=== PATIENT | male | born 1960 | race Two or more races ===

== ENCOUNTER 2019-05-13 14:22 | Emergency (ER) | payer BC ==
--- NOTE | 2019-05-13 14:40 | ED ---
Throat Pain/Nasal Congestion - HPI Summary HPI Summary: The patient is a 59 y/o M presenting to [facility] accompanied by with a chief complaint of sudden onset epistaxis from the right nare about an hour and a half prior to arrival. He reports that she had been at work when this episode occurred. The bleeding started in the right nostril but is also now dripping into his throat. He denies any dizziness. He is not in any pain now. He hasnt had nosebleeds in about 15 years, although he did have another episode last week which he was seen at [facility], where he had been cauterized for an arterial bleed. No trauma to the nose. He is not currently on anticoagulants. PMHx: gastric bypass. Nonsmoker, no EtOH, no substance use. Medications reviewed. Allergies noted. - History of Current Complaint Chief Complaint: EDEpistaxis Time Seen by Provider: 05/13/19 14:34 Hx Obtained From: Patient Onset/Duration: Lasting Minutes - hour and a half, Still Present Severity: Severe Associated Signs And Symptoms: Positive: Nasal Discharge - blood Cough: None - Allergies/Home Medications Allergies/Adverse Reactions: Allergies Allergy/AdvReac Type Severity Reaction Status Date / Time ibuprofen Allergy Bleeding Verified 05/13/19 14:27 PMH/Surg Hx/FS Hx/Imm Hx Endocrine/Hematology History: Denies: Hx Diabetes Cardiovascular History: Denies: Hx Hypertension Sensory History: Reports: Hx Contacts or Glasses Opthamlomology History: Reports: Hx Contacts or Glasses - Surgical History Surgical History: Yes Surgery Procedure, Year, and Place: gastric bypass surgery 2002, ACL repair Infectious Disease History: No Infectious Disease History: Denies: Traveled Outside the [place] in Last 30 Days - Family History Known Family History: Negative: Diabetes Review of Systems Positive: Epistaxis Neurological: Other - Negative: dizziness All Other Systems Reviewed And Are Negative: Yes Physical Exam - Summary Physical Exam Summary: Constitutional: Well-developed, Well-nourished, Alert. (-) Distressed Skin: Warm, Dry HENT: Normocephalic; Atraumatic; Brisk red blood from the right nare, blood in posterior oropharnynx Eyes: Conjunctiva normal Neck: Musculoskeletal ROM normal neck. (-) JVD, (-) Stridor, (-) Nuchal rigidity Cardio: Rhythm regular, tachycardia, Heart sounds normal; Intact distal pulses; Radial pulses are 2+ and symmetric. (-) Murmur Pulmonary/Chest wall: Effort normal. (-) Respiratory distress, (-) Wheezes, (-) Rales Abd: ND Musculoskeletal: (-) Edema Neuro: Alert, Oriented x3 Psych: Mood and affect Normal Triage Information Reviewed: Yes Vital Signs On Initial Exam: Initial Vitals Temp Pulse Resp BP Pulse Ox 98.6 F 106 22 190/104 97 05/13/19 14:22 05/13/19 14:22 05/13/19 14:22 05/13/19 14:22 05/13/19 14:22 Vital Signs Reviewed: Yes Procedures - Procedure Summary Procedure Summary: Epistaxis Procedure Note: Rhinorocket placed in the right nare to good affect. Balloon inflated using 8ccs of air. Bleeding controlled. - Sedation Patient Received Moderate/Deep Sedation with Procedure: No Diagnostics - Vital Signs Vital Signs Temp Pulse Resp BP Pulse Ox 05/13/19 14:22 98.6 F 106 22 190/104 97 - Laboratory Lab Statement: Any lab studies that have been ordered have been reviewed, and results considered in the medical decision making process. Re-Evaluation - Re-Evaluation First Eval Re-Evaluation Time: 15:20 Change: Improved Comment: There is still some blood dripping from the right nare where the rhinorocket is placed. There is no blood in the left nare, and there is no post- nasal drip. Second Eval Re-Evaluation Time: 15:50 Change: Improved Comment: We discussed plan for discharge. No further bleeding. Sent home w amlodipine for BP EENT Course/Dx - Course Course Of Treatment: 59 y/o male pw epistaxis. - PE with prescribed blood from the right ear. Rhino Rocket placed. Patient markedly hypertensive 200 systolic , reports possible history the past been on medications. Given 20 of hydralazine here to aid with epistaxis. -Based on my eval today, no evidence of end organ damage from hypertension. - no chest pain/sob, no YOUNG, neuro exam non-focal. Recommendations for BP management: -The pt likely suffers from essential hypertension. -In the absence of a hypertensive emergency, which the pt does not have, there is no indication to aggressively treat her elevated blood pressure, even when it approaches the systolic ~180 range. -The patient needs manager long term care management of their blood pressure. Given amlodipine Rx. - acutely, the pt may still have an elevated pressure, but over time the medication will take effect. - Diagnoses Provider Diagnoses: Epistaxis, Hypertension Discharge ED - Sign-Out/Discharge Documenting (check all that apply): Patient Departure - Patient will be discharged home. - Discharge Plan Condition: Stable Disposition: HOME Prescriptions: amLODIPine TAB* [Norvasc 5 mg TAB*] 5 mg PO DAILY 30 Days #30 tab Amoxicillin/Clavulanate TAB* [Augmentin TAB 875*] 875 mg PO BID 3 Days #6 tab Patient Education Materials: Nosebleed (ED) Referrals: Natasha KEENAN,[facility] [Primary Care Provider] - 3 Days Additional Instructions: You were seen in the emergency department for a nosebleed. We placed packing in your nostril. Your blood pressure was high, please take amlodipine 5mg daily and get it rechecked w your doctor. Please keep this in place, and follow-up with ENT in the next 2-3 days. Please take antibiotic, Augmentin twice a day. Please return for continued, fevers, facial pain or headaches or if you're concerned. It was a pleasure taking care of you today. - Billing Disposition and Condition Condition: STABLE Disposition: Home - Attestation Statements Document Initiated by Jarvis: Yes Documenting Scribe: Tash Lim Provider For Whom Jarvis is Documenting (Include Credential): Dr. Renato Hernandez MD Scribe Attestation: Tash Mott scribed for Dr. Renato Hernandez MD on 05/13/19 at 1617. Scribe Documentation Reviewed: Yes Provider Attestation: The documentation as recorded by the Tash robles accurately reflects the service I personally performed and the decisions made by me, Dr. Renato Hernandez MD Status of Jarvis Document: Viewed
[2019-05-13] MEDS ORDERED: Amoxicillin/Clavulanate TAB* 875 MG PO ONE (14:54)
--- OUTSIDE RECORDS SUMMARY | 2019-05-13 15:07 | XMS REPORT | Summary of Care ---
:1960 Author Organization [facility] Address [address] [address] Care Team Providers Name Role Phone Janelle Kaur Primary Care Provider Reason for Visit Reason Comments Epistaxis Encounter Details Date Type Department Care Team Description 05/07/2019 - Emergency [facility] Michael Beyer DO Emergency 05/08/2019 Emergency Department 1 Aleks Shepard [address] [email or web address] [address] [phone] Allergies Active Allergy Reactions Severity Noted Date Comments Nsaids Other 10/28/2018 Contraindicated in Gastric Bypass patients due to risk of marginal ulcer formation. documented as of this encounter (statuses as of 05/09/2019) Medications Medication Sig Dispensed Refills Start Date End Date Status Sildenafil Citrate Take by mouth 0 Active (VIAGRA) 25 MG Oral NEEDED. Tab Multiple Vitamin Take 3 Tabs by 0 Active (MULTI VITAMIN DAILY mouth TWICE DAILY. PO)Indications: Indications: Bariatric Chews Bariatric Chews Biotin 2500 MCG Oral Take 1 Cap by mouth 0 Active Cap DAILY. documented as of this encounter (statuses as of 05/09/2019) Active Problems Problem Noted Date Morbid obesity due to excess calories 03/13/2018 Overview: Added automatically from request for surgery [id number] documented as of this encounter (statuses as of 05/09/2019) Immunizations Name Administration Dates Next Due ZOSTER (SHINGRIX) VACCINE 03/17/2019 documented as of this encounter Social History Tobacco Use Types Packs/Day Years Used Date Never Smoker Smokeless Tobacco: Never Used Alcohol Use Drinks/Week oz/Week Comments No Sex Assigned at Date Recorded Not on file Job Start Date Occupation Industry Not on file Not on file Not on file Travel History Travel Start Travel End No recent travel history available. documented as of this encounter Last Filed Vital Signs Vital Sign Reading Time Taken Comments Blood Pressure 160/80 05/08/2019 12:44 manual, pt states he AM EDT was stressed Pulse 93 05/08/2019 12:44 AM EDT Temperature 36.1 05/08/2019 12:44 C (97 AM EDT F) Respiratory Rate 18 05/08/2019 12:44 AM EDT Oxygen Saturation 98% 05/08/2019 12:44 AM EDT Inhaled Oxygen - - Concentration Weight - - Height - - Body Mass Index - - documented in this encounter Discharge Instructions InstructionsNoMichael moreno, - 05/08/2019Please make sure to follow-up with Dr. Esparza, ENT surgeon within 1 week. AttachmentsThe following attachments cannot be sent through Care Everywhere.NOSEBLEED (REFERENCES) (BENGALI)documented in this encounter Plan of Treatment Date Type Specialty Care Team Description 05/11/2019 Office Visit Bariatrics Lexis Leon, SHALINI [address] [facility] [place] [address] 05/16/2019 Nurse/Clinical Support Internal Medicine Health Maintenance Due Date Last Done Comments HEPATITIS C SCREENING 2000 INFLUENZA VACCINE (#1) 2019 HEMOGLOBIN A1C 04/22/2019 10/21/2018, 07/25/2018, 06/07/2018, Additional history exists ZOSTER IMMUNIZATION SERIES 05/12/2019 03/17/2019 (2 of 2) LIPID DISORDER SCREENING 10/22/2019 10/21/2018, 07/25/2018, 06/07/2018, Additional history exists DEPRESSION SCREENING 03/17/2020 03/17/2019 COLONOSCOPY SCREENING 03/17/2024 03/17/2014 PNEUMOCOCCAL 0-64 YRS (1 of 02/09/2026 Postponed from 1 - PPSV23) 02/10/1966 (Other) HPV IMMUNIZATION SERIES Aged Out No longer eligible based on patient's age to complete this topic MENINGOCOCCAL VACCINE IMM Aged Out No longer eligible based on patient's age to complete this topic documented as of this encounter Goals Goal Patient Goal Associated Recent Patient-Stated? Author Type Problems Progress Blood Pressure Blood Pressure 160/80 No Natasha, < 140/90 (05/08/2019 MD Janelle 12:44 AM EDT) Note: This is an individualized treatment (blood pressure) goal for Aric White: Displayed above (on the left) is your goal for blood pressure control. Your most recent blood pressure is also shown above, on the right. You should try to achieve blood pressures that are lower than your goal listed above (on the left). Glycohemoglobin A1c < 7.0 Diabetes 5.5 (10/21/2018 7:34 AM EDT) No Janelle Kaur MD Note: This is an individualized treatment (diabetes control, HgbA1C) goal for Aric White: Displayed above is your progress towards your HgbA1C goal. Your goal is shown above (on the left); your most recent HgbA1C is shown on the right. Note that lower numbers are better. Keep immunizations current Lifestyle Janelle Whittington MD Note: This is an individualized lifestyle goal for Aric White: Please be sure to keep up-to-date on recommended immunizations. For example, this would include a yearly influenza vaccine. Immunization status can be seen by looking at the Health Maintenance sections of your [employer], Plan of Care, and any After Visit Summaries. Take all prescribed medications as directed Self-management Janelle Whittington MD Note: This is an individualized self-management goal for Aric White: Please take all prescribed medications as directed. 1. Do not skip doses. If you cannot afford your medications, talk with your doctor. 2. Use a pill reminder system such as a pill box if needed. Your pharmacist can help you with this. 3. Contact your Pharmacy 5 days before your medication runs out. If you cannot take your medications for any reasons, talk with your doctor. 4. Please bring all of your medication bottles and inhalers (or a list of all your medications/inhalers) with you to every visit. Potential barriers to meeting all of your care plan goals will continue to be addressed on an ongoing basis. documented as of this encounter Procedures Procedure Name Priority Date/Time Associated Diagnosis Comments CONTROL NOSEBLEED Routine 05/08/2019 12:47 AM Results for this (EPISTAXIS)(FOR ED EDT procedure are in USE) the results section. documented in this encounter Results Epistaxis (05/08/2019 12:47 AM EDT) Narrative Performed At Michael Beyer DO [facility] POCT 05/08/2019 2:20 AM Epistaxis Date/Time: 05/08/2019 2:17 AM Performed by: Michael Beyer DO Authorized by: Michael Beyer DO Consent: Consent obtained: Verbal Consent given by: Patient Risks discussed: Bleeding, infection, nasal injury and pain Alternatives discussed: No treatment Anesthesia (see MAR for exact dosages): Anesthesia method: Topical application Topical anesthetic: Lidocaine gel Procedure details: Treatment site: R anterior Treatment method: Silver nitrate Treatment episode: initial Post-procedure details: Assessment: Bleeding stopped Patient tolerance of procedure: Tolerated well, no immediate complications Performing Organization Address [facility] Number [facility] [address] [facility] [place] [address] documented in this encounter Visit Diagnoses Diagnosis Epistaxis - Primary documented in this encounter Administered Medications Medication Order MAR Action Action Date Dose Rate Site lidocaine HCl (XYLOCAINE) injection Given 05/07/2019 10:39 PM EDT 5 mL Nose 1 % 5 mL, Subcutaneous, NOW, 1 dose, 05/07/19 at 2240 nitroglycerin (NITROSTAT) sublingual tablet Given 05/07/2019 10:43 PM EDT 0.4 mg (1/150) 0.4 mg 0.4 mg, Sublingual, NOW, 1 dose, 05/07/19 at 2245 NITROGLYCERIN 0.4 MG SL SUBL 1 dose, Starting 05/07/19 at 2233, Until 05/07/19 at 2243, Renata Arreola: cabinet override, PHENYLephrine (MAME-SYNEPHRINE) spray 0.5 % Given 05/07/2019 10:40 PM EDT 3 Sprays 3 [employer], Nasal, NOW, 1 dose, 05/07/19 at 2240 SILVER NITRATE-POT NITRATE 75-25 % EX MISC 1 dose, Starting 05/07/19 at 2341, Until 05/07/19 at 2345, ALYSE QUEZADA: cabinet override, Silver Nitrate-Pot Nitrate topical 1 Appl Given 05/07/2019 11:45 PM EDT 1 Appl 1 Appl, Apply externally, NOW, 1 dose, 05/07/19 at 2345 tranexamic acid (CYKLOKAPRON) topical Given 05/07/2019 10:40 PM EDT 1,000 mg Nose soln 1,000 mg, Topical, X1, 1 dose, First dose on 05/07/19 at 2340 documented in this encounter Insurance Payer Benefit Plan / Subscriber ID Effective Dates Phone Address Type Group GILBERTO ACEVEDO xxxxxxxxxxxx 2011-Present Gilberto BOLANOS PPO (Work) documented as of this encounter
--- OUTSIDE RECORDS SUMMARY | 2019-05-13 15:07 | XMS REPORT | Summary of Care ---
:1960 Author Organization [facility] Address [address] [place] [address] Care Team Providers Name Role Phone Malik Kirkland MD Primary Care Provider Reason for Referral Diagnostic Testing (Routine) Status Reason Specialty Diagnoses / Referred By Referred To Procedures Contact Contact Pending Review Diagnoses Inferior NV (HCC) Janelle Kaur MD Procedures EXERCISE STRESS ECHO W/TREADMILL [address] [place] [place] [address] Reason for Visit Reason Comments Establish Care Blood Pressure 166/94 left arm, sitting Encounter Details Date Type Department Care Team Description 03/17/2019 Office Visit [facility] Janelle Kaur MD Establishing care with new doctor, encounter for (Primary Dx); Medicine 31 [facility] Elevated blood pressure reading without diagnosis of hypertension; 31 [facility] A Inferior NV (HCC); [place], [place] [id number] [place] [address] Need for hepatitis C screening test; [phone] [facility] Need for shingles vaccine; [phone] Depression screen Allergies Active Allergy Reactions Severity Noted Date Comments Nsaids Other 10/28/2018 Contraindicated in Gastric Bypass patients due to risk of marginal ulcer formation. documented as of this encounter (statuses as of 03/17/2019) Medications Medication Sig Dispensed Refills Start Date End Date Status Sildenafil Citrate Take by mouth 0 Active (VIAGRA) 25 MG NEEDED. Oral Tab Multiple Vitamin Take 3 Tabs by 0 Active (MULTI VITAMIN mouth TWICE DAILY DAILY. PO)Indications: Indications: Bariatric Chews Bariatric Chews Biotin 2500 MCG Take 1 Cap by 0 Active Oral Cap mouth DAILY. docusate sodium Take 1 Cap by 30 Cap 1 04/21/2018 03/17/2019 Discontinued (COLACE) 100 MG mouth TWO TIMES Oral Cap DAILY NEEDED (constipation). ondansetron Take 1 Tab by 60 Tab 3 04/21/2018 03/17/2019 Discontinued (ZOFRAN ODT) 4 MG mouth Oral TABLET DIRECTED. DISPERSIBLE Please take 4mg Zofran tablet every 6 hours as needed for nausea or vomiting. pantoprazole Take 1 Tab by 30 Tab 0 10/28/2018 03/17/2019 Discontinued (PROTONIX) 20 MG mouth DAILY. Oral Tab EC documented as of this encounter (statuses as of 03/17/2019) Active Problems Problem Noted Date Morbid obesity due to excess calories 03/13/2018 Overview: Added automatically from request for surgery [id number] documented as of this encounter (statuses as of 03/17/2019) Immunizations Name Administration Dates Next Due ZOSTER [...] Sign Reading Time Taken Comments Blood Pressure - - Pulse 82 03/17/2019 9:50 AM EDT Temperature 36.6 03/17/2019 9:50 AM EDT C (97.9 F) Respiratory Rate - - Oxygen Saturation 99% 03/17/2019 9:50 AM EDT Inhaled Oxygen Concentration - - Weight 78 kg (172 lb) 03/17/2019 9:50 AM EDT Height 170.2 cm (5' 7") 03/17/2019 9:50 AM EDT Body Mass Index 26.94 03/17/2019 9:50 AM EDT documented in this encounter Patient Instructions Patient InstructionsJanelle Kaur MD - 03/17/2019 9:30 AM EDTPlease start taking vitamin D3 2000 units one daily. Please continue with healthy life style changes and weight loss. Excellent job . please check blood pressure at different times during the day at home and forward the records to theoffice every 5 days. Please bring blood pressure cuff with you at your next visit. documented in this encounter Progress Notes Janelle Kaur MD - 03/17/2019 9:30 AM EDT PATIENT: Aric White : 1960 DATE OF SERVICE: 03/17/2019 Chief Complaint Patient presents with [facility] Care Blood Pressure 166/94 left arm, sitting SUBJECTIVE Aric White is a 59-y.o. Came in for establishment. Blood pressure at home in the range of 140-145/80-85 He denies urinary hesitancy, nocturia, frequency or incomplete voiding. Currently he denies cough, chest pain, dyspnea, abdominal or flank pain, nausea or vomiting, changein bowel habits, dysuria, frequency or hematuria. no fever or chills . Functional Ability, Level of Safety Are you deaf or do you have serious difficulty hearing?: No Are you blind or do you have serious difficulty seeing, even when wearing glasses?: No Do you have serious difficulty concentrating, remembering, or making decisions? : No Do you have serious difficulty walking or climbing stairs? (5 years old or older ): No Do you have difficulty dressing or bathing? (5 years old or older): No Do you have difficulty doing errands alone such as visiting a doctors office or shopping?: No Depression Screening Over the last 2 weeks, have you been feeling down, depressed, anxious, or hopeless?: Not at all Over the past 2 weeks, have you felt little interest or pleasure in doing things ?: Not at all EDU-7 Screening Over the last 2 weeks, how often have you felt nervous, anxious or on edge?: Not at all sure Over the last 2 weeks, how often have you not been able to stop or control worrying?: Not at all sure Over the last 2 weeks, how often have you worried too much about different things?: Not at all sure Over the last 2 weeks, how often have you had trouble relaxing?: Not at all sure Over the last 2 weeks, how often have you been so restless you couldn't sit still?: Not at all sure Over the last 2 weeks, how often have you become easily annoyed or irritable: Not at all sure Over the last 2 weeks, how often have you felt afraid as if something awful might happen?: Not at all sure EDU-7 Total Score: 0 How difficult have these problems made it for you to do your work, take care of things at home, or get along with other people?: Not difficult Past Medical History: Diagnosis Date Arthritis Back pain High cholesterol Hypertension Sleep apnea uses CPAP Outpatient Encounter Medications as of 03/17/2019 Medication Sig Dispense Refill Biotin 2500 MCG Oral Cap Take 1 Cap by mouth DAILY. [DISCONTINUED] docusate sodium (COLACE) 100 MG Oral Cap Take 1 Cap by mouth TWO TIMES DAILY NEEDED (constipation). 30 Cap 1 Multiple Vitamin (MULTI VITAMIN DAILY PO) Take 3 Tabs by mouth TWICE DAILY. Indications: Bariatric Chews [DISCONTINUED] ondansetron (ZOFRAN ODT) 4 MG Oral TABLET DISPERSIBLE Take 1 Tab by mouth DIRECTED. Please take 4mg Zofran tablet every 6 hours as needed for nausea or vomiting. 60 Tab 3 [DISCONTINUED] pantoprazole (PROTONIX) 20 MG Oral Tab EC Take 1 Tab by mouth DAILY. 30 Tab 0 Sildenafil Citrate (VIAGRA) 25 MG Oral Tab Take by mouth NEEDED. No facility-administered encounter medications on file as of 03/17/2019. Past Surgical History: Procedure Laterality Date CT UPPER EXTREMITY SHOULDER LEFT Left 2003 EGD N/A 12/17/2017 Procedure: ENDOSCOPY UPPER GI; Surgeon: Jossie Majano MD; Location: [facility] MAIN OR NC ANESTH,KNEE AREA SURGERY Right NC LAP GASTRIC BYPASS/JAYA-EN-Y 05/04/2018 ROTATOR CUFF REPAIR Left 2003 Allergies Allergen Reactions Nsaids Other Contraindicated in Gastric Bypass patients due to risk of marginal ulcer formation. Social History Tobacco Use Smoking status: Never Smoker Smokeless tobacco: Never Used Substance Use Topics Alcohol use: No Drug use: No Family History Problem Relation Age of Onset Diabetes Father Hypertension Father Cancer Father prostate No Known Problems Mother Obesity Sister No Known Problems Daughter No Known Problems Son Obesity Sister Obesity Sister No Known Problems Son ROS all other review of systems are negative per HPI OBJECTIVE Pulse 82 Temp 97.9 F (36.6 C) (Tympanic) Ht 5' 7" (1.702 m) Wt 172 lb (78 kg) SpO2 99% BMI 26.94 kg/m2 BP= 166/94 GENERAL: alert,oriented,appears not toxic, not dehydrated, not diaphoretic and not distressed. OROPHARYNX: Normal. EYE: is normal -sclera white,conjunctiva anicteric NECK: Non tender.supple without lymphadenopathy LUNG: clear to auscultation bilaterally. HEART: regular rate and rhythm, S1, S2 normal, no murmur, click, rub or gallop ABDOMEN: soft, non-tender. No masses, no organomegaly. No CVA tenderness EXTREMITIES: No clubbing,cyanosis or edema. ICD-9-CM ICD-10-CM 1. Establishing care with new doctor, encounter for V65.8 Z76.89 2. Elevated blood pressure reading without diagnosis of hypertension; EKG: normal EKG, normal sinus rhythm, unchanged from previous tracings, Q waves in leads 3 and aVF which is new , rate= 53. I will manage as follow 796.2 R03.0 AMBULATORY 12 LEAD EKG (GLOBAL) AMBULATORY BLOOD PRESSURE MONITORING, 24 HOURS, GLOBAL 3. Inferior NV (HCC); : I had long discussion explaining disease management and I will manage his follow I will order 410.40 I21.19 EXERCISE STRESS ECHO W/ TREADMILL 4. Need for hepatitis C screening test; i will order V73.89 Z11.59 HEPATITIS C ANTIBODY 5. Need for shingles vaccine V04.89 Z23 NC SHINGRIX (ZOSTER) 6. Depression screen V79.0 Z13.31 The most recent last blood work are reviewed discussed and explained to patient in full details . I have reviewed the patient's medical history in detail and updated the computerized patient record. Plan Orders Placed This Encounter AMBULATORY BLOOD PRESSURE MONITORING, 24 HOURS, GLOBAL Shingrix (Zoster) Vaccine HEPATITIS C ANTIBODY AMBULATORY 12 LEAD EKG (GLOBAL) STRESS ECHOCARDIOGRAM Patient for COLONOSCOPY Biotin 2500 MCG Oral Cap Patient Instructions Please start taking vitamin D3 2000 units one daily. Please continue with healthy life style changes and weight loss. Excellent job . please check blood pressure at different times during the day at home and forward the records to theoffice every 5 days. Please bring blood pressure cuff with you at your next visit. Janelle Kaur MD 03/17/2019 18:30 documented in this encounter Plan of Treatment Date Type Specialty Care Team Description 03/29/2019 Cardiology Cardiology Nurse/clinical support 04/03/2019 Office Visit Internal Medicine Janelle Kaur MD [address] [facility] [address] [place] [id number] 05/02/2019 Office Visit Marck Doty, PhD [address] [facility] [place] [address] 05/02/2019 Office Visit BariatricLexis Marie, SHALINI [address] [facility] [place] [address] 05/16/2019 Nurse/Clinical Support Internal Medicine Name Type Priority Associated Diagnoses Order Schedule HEPATITIS C ANTIBODY Lab Routine Need for hepatitis C Expected: screening test 04/17/2019 (Approximate), Expires: 03/17/2020 AMBULATORY 12 LEAD EKG EKG Routine Elevated blood pressure Ordered: 2018 (GLOBAL) reading without diagnosis of hypertension EXERCISE STRESS ECHO CV Lab Routine Inferior NV (HCC) Expected: W/TREADMILL 03/17/2019, Expires: 04/20/2020 AMBULATORY BLOOD Procedures Routine Elevated blood pressure Ordered: 2018 PRESSURE MONITORING, reading without 24 HOURS, GLOBAL diagnosis of hypertension Health Maintenance Due Date Last Done Comments HEPATITIS C SCREENING 2000 ZOSTER IMMUNIZATION SERIES 02/10/2010 (1 of 2) INFLUENZA VACCINE (#1) 2019 HEMOGLOBIN A1C 04/22/2019 10/21/2018, 07/25/2018, 06/07/2018, Additional history exists LIPID DISORDER SCREENING 10/22/2019 10/21/2018, 07/25/2018, 06/07/2018, [...] Type Problems Progress Blood Pressure Blood Pressure 148/96 No Natasha, < 140/90 (10/28/2018 MD Janelle 8:41 AM EDT) Note: This is an individualized [...] individualized treatment (diabetes control, HgbA1C) goal for Airc White: Displayed above is your progress towards [...] Procedure Name Priority Date/Time Associated Diagnosis Comments COLONOSCOPY Routine 03/17/2014 documented in this encounter Results COLONOSCOPY (03/17/2014) [facility] Organization Address City/State/Zipcode Phone Number [facility] [address] [place] [id number] documented in this encounter Visit Diagnoses Diagnosis Establishing care with new doctor, encounter for - Primary Other reasons for seeking consultation Elevated blood pressure reading without diagnosis of hypertension 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
[2019-05-13] MEDS ORDERED: hydrALAZINE TAB* 25 MG PO ONE (15:12)
[2019-05-13 16:08] VITALS: BP 170/130
== END 2019-05-13 16:06 | disposition home or self-care (01) ==
LOC: ED 14:22
DX: R04.0 Epistaxis (principal); I10 Essential (primary) hypertension; Z98.84 Bariatric surgery status; Z88.6 Allergy status to analgesic agent
CPT/HCPCS: 99282; A9270-GY